=== PATIENT | male | born 2000 | race Two or more races ===

== ENCOUNTER → 2020-07-08 17:00 | Outpatient (CLI) | payer OTHER | END | disposition home or self-care (01) | LOC: PPH VACUNA 17:00 | DX: Z23 Encounter for immunization (principal) ==

== ENCOUNTER 2020-07-29 13:47 | Outpatient (CLI) | payer OTHER | END 2020-07-29 13:48 | disposition home or self-care (01) | LOC: PPH VACUNA 13:47 | DX: Z23 Encounter for immunization (principal) ==